=== PATIENT | male | born 1995 | race Caucasian/White ===

== ENCOUNTER 2016-08-10 06:34 | Day surgery (SDC) | payer OTHER ==
[2016-08-03 12:02] LABS: HEMOGLOBIN 15.5 g/dL (13.5-17.0); HGB HCT DIFFERENCE 2.5; MEAN CORPUSCULAR HEMOGLOBIN 29.7 pg (27.0-33.4); MEAN CORPUSCULAR HGB CONC 35.4 g/dL (32.0-36.0); MEAN CORPUSCULAR VOLUME 84 fl (80-97); RED BLOOD COUNT 5.23 10^6/uL (4.35-5.55); RED CELL DISTRIBUTION WIDTH 12.6 % (11.5-14.0); WHITE BLOOD COUNT 6.6 10^3/uL (4.0-10.5)
[~2016-08-10 06:34] MED LIST: CEFAZOLIN 2 GM/D5W RTU 2 GM/50 ML RTUPB IV PRN; LACTATED RINGERS 1000 ML IV PRN; LIDOCAINE 0.5% INJ-PF (5 MG/ML) 50 ML SDV SUBCUT PRN
[2016-08-10] MEDS ORDERED: FENTANYL CITRATE INJ/PF 100 MCG/2 ML AMPUL ONE (06:35)
[2016-08-10] MEDS ORDERED: MIDAZOLAM 2 MG/2 ML INJ ONE (06:35)
[2016-08-10] MEDS ORDERED: DEXMEDETOMIDINE INJ 80 MCG/20 ML VIAL IV ONE (06:35)
[2016-08-10] MEDS ORDERED: PROPOFOL INJ 200 MG/20 ML VIAL IV ONE (06:35)
[2016-08-10] MEDS ORDERED: BUPIVACAINE HCL 0.25 % INJ/PF (2.5 MG/1 ML) 30 ML VIAL ONE (07:34)
[2016-08-10] MEDS ORDERED: ONDANSETRON HCL INJ/PF 4 MG/2 ML SDV ONE (07:35)
[2016-08-10] MEDS ORDERED: LIDOCAINE 2% INJ-PF (20 MG/ML) 10 ML AMPUL ONE (07:35)
[2016-08-10] MEDS ORDERED: DEXAMETHASONE SOD PHOSPHATE INJ 4 MG/1 ML VIAL ONE (07:35)
[2016-08-10] MEDS ORDERED: PROMETHAZINE HCL INJ 25 MG/1 ML VIAL IV PRN (10:18)
[2016-08-10] MEDS ORDERED: MORPHINE SULFATE 10 MG/ML INJ IV PRN (10:18)
[2016-08-10] MEDS ORDERED: MEPERIDINE HCL/PF INJ 25 MG/1 ML DISP.SYRIN IV PRN (10:18)
[2016-08-10] MEDS ORDERED: FENTANYL CITRATE INJ/PF 100 MCG/2 ML AMPUL IV PRN ×3 (10:18)
[2016-08-10] MEDS ORDERED: DIPHENHYDRAMINE HCL 50 MG/ML VIAL IV PRN (10:18)
[2016-08-10] MEDS ORDERED: OXYCODONE-ACETAMINOPHEN 5-325 MG TABLET PO PRN (11:51)
[2016-08-10] MEDS ORDERED: HYDROMORPHONE HCL INJ/PF 2 MG/ML AMPULE IV PRN (11:51)
[2016-08-10] MEDS ORDERED: ONDANSETRON HCL INJ/PF 4 MG/2 ML SDV IV PRN (11:54)
[2016-08-10 13:52] VITALS: BP 119/65
--- NOTE | 2016-08-10 16:33 | OPERATIVE REPORT E ---
Operative Report NAME: JESUS PORRAS : 1995 AGE: 21Y DATE OF SURGERY: 08/10/2016 ROOM: INDICATIONS FOR PROCEDURE: The patient is a 21-year-old male with a history of left-sided testicular pain who was found to have left grade 2 varicocele on exam. He was counseled on the risks, benefits and side effects of a left-sided varicocelectomy and consented to proceed. PREOPERATIVE DIAGNOSIS: LEFT VARICOCELE. POSTOPERATIVE DIAGNOSIS: LEFT VARICOCELE. OPERATION: Left microscopic varicocelectomy. SURGEON: JESUS CARTY D.O. RENAL DIALYSIS TECHNICIAN: Dr. Arnaud Mccoy, Attending Commander, [employer]. ANESTHESIA: General. INTRAVENOUS FLUIDS: 1 L lactated Ringer's. ESTIMATED BLOOD LOSS: 10 mL. URINE OUTPUT: Zero. TISSUE REMOVED OR ALTERED: None. COMPLICATIONS: None. FINDINGS: Two dilated veins in the pampiniform plexus. DESCRIPTION OF PROCEDURE: The patient was met in the preoperative holding area and risks, benefits and side effects of a left-sided microscopic varicocelectomy were again reviewed with the patient and he consented to proceed. He was brought to the operative theater and placed on the table in a supine position where general anesthesia was induced. He was then sterilely prepped and draped in the usual fashion. A time-out was performed to ensure proper patient, proper procedure, and proper laterality being the left. Antibiotics administered and preoperative radiographs have been reviewed. With all in agreement, we proceeded. A 4 cm incision was made in the left groin approximately 1 cm superior and lateral to the external inguinal ring. This was deepened down to the external oblique fascia which was entered with the Metzenbaum scissors in the direction of its fibers. The spermatic cord was bluntly dissected from its attachments in the canal and then the external and internal spermatic fascia were entered with electrocautery. We discovered 2 dilated veins in the pampiniform plexus which were bluntly dissected and the artery identified with ultrasound. We then sequentially tied the dilated veins with 4-0 silk ties and returned the cord to its canal after attaining hemostasis. The external oblique fascia was closed with a running 2-0 Vicryl suture. A cord block was performed with 0.25% Marcaine. We then injected the external oblique fascia with Marcaine as well. The Delonte fascia was closed with interrupted 3-0 Vicryl sutures as was the subcutaneous tissues. A 4-0 Monocryl was used to close the skin in a subcuticular fashion and then it was sealed with Dermabond. A fluff gauze and scrotal support were placed as well. The patient tolerated the procedure well, was awakened and taken to the PACU in good condition. At the conclusion of the case, all sponge, instrument and needle counts were complete and correct. DICTATING PHYSICIAN: JESUS CARTY D.O. [id number] Y#: [id number] ID: [id number] JOB#: [id number] ACCT: [id number] cc:JESUS CARTY D.O. >
== END 2016-08-10 13:30 | disposition home or self-care (01) ==
LOC: OROUT 06:34
PROVIDERS: ATTEND Surgery
PROC: 0VBG0ZZ Excision of Left Spermatic Cord, Open Approach (ICD-10-PCS; principal; 2016-08-10 09:00)
DX: I86.1 Scrotal varices (principal); F17.290 Nicotine dependence, other tobacco product, uncomplicated
CPT/HCPCS: 36415; 85027; 55535; J2250; J1100; J3010; J2405; J2704; J3490 ×2; J0690; 920